=== PATIENT | female | born 1975 | race Caucasian/White ===

== ENCOUNTER 2017-09-24 17:46 | Emergency (ER) | payer MEDICAID ==
[~2017-09-24] VITALS: Ht 165.1 cm; Wt 56.7 kg
[2017-09-24 17:52] VITALS: BP_SYST 117
[2017-09-24 19:17] LABS: BASOPHILS % (AUTO) 0.7 % (0.0-2.0); EOSINOPHILS # (AUTO) 0.1 K/uL (0.0-0.4); HEMATOCRIT 32.3 % (36-48); HEMOGLOBIN 10.5 g/dL (12.0-16.0); LYMPHOCYTES # (AUTO) 0.8 K/uL (1.0-5.5); LYMPHOCYTES % (AUTO) 19.6 % (20.5-51.5); MEAN CORPUSCULAR HEMOGLOBIN 27 pg (27-31); MEAN CORPUSCULAR HGB CONC 32 % (32-36); MEAN CORPUSCULAR VOLUME 84 fL (79.0-98.0); MONOCYTES # (AUTO) 0.2 K/uL (0.0-1.0); MONOCYTES % (AUTO) 6.2 % (1.7-9.3); NEUTROPHILS # (AUTO) 2.8 K/uL (1.8-7.7); NEUTROPHILS % (AUTO) 71.5 % (40.0-70.0); PLATELET COUNT (AUTO) 182 K/uL (130-430); RED BLOOD CELL COUNT(AUTO) 3.85 MIL/uL (4.2-6.2); RED CELL DISTRIBUTION WIDTH 13.2 % (9.0-15.0); WHITE BLOOD COUNT (AUTO) 3.9 K/uL (4.8-10.8)
[2017-09-24 19:35] LABS: INR 0.9 (0.8-1.2); PROTHROMBIN TIME 9.4 SECS (9.5-12.5)
[2017-09-24 19:42] LABS: ANION GAP 6 (5-15); CALCIUM 9.1 mg/dL (8.4-11.0); CHLORIDE 107 mmol/L (98-107); GLUCOSE 94 mg/dL (70-99); POTASSIUM 4.1 mmol/L (3.5-5.1); SODIUM SERUM 140 mmol/L (136-145); UREA NITROGEN, BLOOD 15 mg/dL (8-21)
[2017-09-24 19:47] LABS: GFR AFRICAN AMERICAN 142 mL/min (>90)
[2017-09-24 19:55] LABS: ALANINE AMINOTRANSFERASE 36 U/L (12-78); ALBUMIN 3.2 g/dL (3.4-4.8); ASPARTATE AMINOTRANSFERASE 22 U/L (10-37); FREE T4 (FREE THYROXINE) 0.6 ng/dL (0.6-1.6); TOTAL BILIRUBIN 0.2 mg/dL (0.0-1.0)
[2017-09-24 19:57] LABS: ALCOHOL, BLOOD < 3 mg/dL (<10)
== END 2017-09-24 20:10 | disposition home or self-care (01) ==
LOC: SED 17:46
DX: I87.2 Venous insufficiency (chronic) (peripheral) (principal); I73.9 Peripheral vascular disease, unspecified; H10.9 Unspecified conjunctivitis; F17.200 Nicotine dependence, unspecified, uncomplicated; Z71.6 Tobacco abuse counseling
CPT/HCPCS: 36415; 80053; 82140; 83605; 83880; 84439; 84484; 85025; 85610; 87040; 93005; 93971; 99285; G0482

== ENCOUNTER 2018-02-19 17:12 | Emergency (ER) | payer MEDICAID ==
[~2018-02-19] VITALS: Ht 167.6 cm; Wt 58.1 kg
[2018-02-19 17:16] VITALS: BP_SYST 162
[2018-02-19 18:10] VITALS: BP_SYST 162
== END 2018-02-19 18:10 | disposition home or self-care (01) ==
LOC: SED 17:12
DX: S90.01XA Contusion of right ankle, initial encounter (principal); M19.90 Unspecified osteoarthritis, unspecified site; Z85.41 Personal history of malignant neoplasm of cervix uteri; X58.XXXA Exposure to other specified factors, initial encounter; Y93.89 Activity, other specified; Y92.89 Other specified places as the place of occurrence of the external cause; Y99.8 Other external cause status
CPT/HCPCS: 99284

== ENCOUNTER 2019-10-18 18:59 | Emergency (ER) | payer MEDICAID ==
[~2019-10-18] VITALS: Ht 165.1 cm; Wt 59.0 kg
[2019-10-18 19:05] VITALS: BP_SYST 128
[2019-10-18 19:59] LABS: BASOPHILS % (AUTO) 0.5 % (0.0-2.0); EOSINOPHILS % (AUTO) 0.3 % (0.0-4.0); HEMATOCRIT 46.7 % (36-48); HEMOGLOBIN 15.8 g/dL (12.0-16.0); LYMPHOCYTES # (AUTO) 0.6 K/uL (1.0-5.5); LYMPHOCYTES % (AUTO) 9.1 % (20.5-51.5); MEAN CORPUSCULAR HEMOGLOBIN 30 pg (27-31); MEAN CORPUSCULAR HGB CONC 34 % (32-36); MEAN CORPUSCULAR VOLUME 87 fL (79.0-98.0); MONOCYTES # (AUTO) 0.2 K/uL (0.0-1.0); MONOCYTES % (AUTO) 3.6 % (1.7-9.3); NEUTROPHILS # (AUTO) 5.8 K/uL (1.8-7.7); NEUTROPHILS % (AUTO) 86.5 % (40.0-70.0); PLATELET COUNT (AUTO) 200 K/uL (130-430); RED BLOOD CELL COUNT(AUTO) 5.36 MIL/uL (4.2-6.2); RED CELL DISTRIBUTION WIDTH 15.5 % (9.0-15.0); WHITE BLOOD COUNT (AUTO) 6.8 K/uL (4.8-10.8)
[2019-10-18 20:07] LABS: CALCIUM 10.4 mg/dL (8.4-11.0); CREATININE 0.75 mg/dL (0.55-1.30); POTASSIUM 3.4 mmol/L (3.5-5.1)
[2019-10-18 20:12] LABS: ALBUMIN 4.8 g/dL (3.4-4.8); TOTAL BILIRUBIN 0.4 mg/dL (0.0-1.0)
[2019-10-18] MEDS ORDERED: FAMOTIDINE PF 20 MG/2 ML VIAL IVP ONE (20:15)
[2019-10-18] MEDS ORDERED: MORPHINE 4 MG/ML INJ. SYRINGE IVP ONE (20:15)
[2019-10-18] MEDS ORDERED: ONDANSETRON HCL 4 MG/2 ML VIAL IVP ONE (20:15)
[2019-10-18] MEDS ORDERED: NACL 0.9% 1,000 ML IV ONE (20:15)
[2019-10-18] MEDS ORDERED: POTASSIUM CHLORIDE 20 MEQ TAB.PRT.SR PO ONE (21:00)
[2019-10-18 21:47] LABS: BILIRUBIN,URINE NEGATIVE (NEGATIVE); BLOOD, URINE NEGATIVE (NEGATIVE); COLOR,URINE YELLOW (YELLOW); GLUCOSE,URINE NEGATIVE (NEGATIVE); KETONES,URINE NEGATIVE (NEGATIVE); NITRITE, URINE NEGATIVE (NEGATIVE); PH,URINE 7.5 (5.0-8.0); PROTEIN URINE NEGATIVE (NEGATIVE); UROBILINOGEN,URINE 0.2 (0.2-1.0)
[2019-10-18 21:55] LABS: CLARITY/URINE HAZY (CLEAR); LEUKOCYTE ESTERASE ,URINE TRACE (NEGATIVE)
[2019-10-18 21:58] LABS: BACTERIA,URINE FEW /HPF (None Seen); MUCUS,URINE None Seen /LPF (None Seen); RBC,URINE NONE SEEN /HPF (0-3); URINE AMORPHOUS PHOSPHATES 1+ /HPF (None Seen)
[2019-10-18 22:49] VITALS: BP_SYST 125
[2019-10-19] MEDS ORDERED: ALPR1TAB2 PO (05:27)
[2019-10-19] MEDS ORDERED: FURO-150 PO (05:27)
[2019-10-19] MEDS ORDERED: RANI-362 PO (05:27)
[2019-10-19] MEDS ORDERED: NEU300 PO (05:27)
[2019-10-19] MEDS ORDERED: TIZA4TAB11 PO (05:27)
[2019-10-19] MEDS ORDERED: POTA8TAB4 PO (05:27)
[2019-10-19] MEDS ORDERED: BACL10TA PO (05:27)
[2019-10-19] MEDS ORDERED: HYD10 PO (05:27)
[2019-10-19] MEDS ORDERED: IMI50 PO (05:27)
[2019-10-19] MEDS ORDERED: FERROUS SULFATE PO (05:27)
[2019-10-19] MEDS ORDERED: MONT10TA25 PO (05:27)
[2019-10-19] MEDS ORDERED: OMEP40CA33 PO (05:27)
== END 2019-10-18 22:49 | disposition home or self-care (01) ==
LOC: SED 18:59
DX: R10.84 Generalized abdominal pain (principal); R11.10 Vomiting, unspecified
CPT/HCPCS: 36415; 74021; 76700; 80053; 81000; 83690; 84703; 85025; 96361; 96374; 96375; 99284; J2270; J2405; J3490; J7030

== ENCOUNTER 2019-10-19 03:17 | Inpatient (IN) | payer MEDICAID ==
[~2019-10-19] VITALS: Ht 165.1 cm; Wt 60.8 kg
[2019-10-19 03:20] VITALS: BP_SYST 103
[2019-10-19] MEDS ORDERED: MORPHINE 4 MG/ML INJ. SYRINGE IVP ONE (03:30)
[2019-10-19] MEDS ORDERED: ONDANSETRON HCL 4 MG/2 ML VIAL IVP ONE (03:30)
[2019-10-19] MEDS ORDERED: NACL 0.9% 1,000 ML IV ONE (04:00)
[2019-10-19] MEDS ORDERED: POTA8TAB4 PO (05:27)
[2019-10-19] MEDS ORDERED: MONT10TA25 PO (05:27)
[2019-10-19] MEDS ORDERED: OMEP40CA33 PO (05:27)
[2019-10-19] MEDS ORDERED: NEU300 PO (05:27)
[2019-10-19] MEDS ORDERED: ALPR1TAB2 PO (05:27)
[2019-10-19] MEDS ORDERED: FURO-150 PO (05:27)
[2019-10-19] MEDS ORDERED: HYD10 PO (05:27)
[2019-10-19] MEDS ORDERED: IMI50 PO (05:27)
[2019-10-19] MEDS ORDERED: TIZA4TAB11 PO (05:27)
[2019-10-19] MEDS ORDERED: FERROUS SULFATE PO (05:27)
[2019-10-19] MEDS ORDERED: RANI-362 PO (05:27)
[2019-10-19] MEDS ORDERED: BACL10TA PO (05:27)
[2019-10-19] MEDS: ACETAMINOPHEN 325 MG TABLET PO PRN ×2 (09:42→21:33)
[2019-10-19] MEDS ORDERED: ONDANSETRON HCL 4 MG/2 ML VIAL IVP PRN (10:00)
[2019-10-19] MEDS ORDERED: METOCLOPRAMIDE HCL 10 MG/2 ML VIAL IVP PRN (10:00)
[2019-10-19] MEDS ORDERED: MORPHINE 2 MG/ML INJ. SYRINGE IVP PRN (10:00)
[2019-10-19 10:42] VITALS: BP_SYST 122
[2019-10-19] MEDS: D5NS 1,000 ML IV SCH (10:53)
[2019-10-19] MEDS: MORPHINE 4 MG/ML INJ. SYRINGE IVP PRN ×2 (13:34→17:49)
[2019-10-19] MEDS ORDERED: HYDROCORTISONE 10 MG TABLET (CORTEF) PO ONE (15:15)
[2019-10-19 16:26] VITALS: BP_SYST 91
[2019-10-19 20:00] VITALS: BP_SYST 89
[2019-10-19 22:00] VITALS: BP_SYST 85
[2019-10-20] VITALS: BP_SYST 108
[2019-10-20 01:50] VITALS: BP_SYST 93
[2019-10-20] MEDS: D5NS 1,000 ML IV SCH (02:52)
[2019-10-20] MEDS ORDERED: HYDROcodone/ACETAMIN 5-325 MG TAB (NORCO/ VICODIN) PO PRN (03:30)
[2019-10-20 08:40] VITALS: BP_SYST 103
== END 2019-10-20 09:30 | disposition left against medical advice (07) | DRG 251 ==
LOC: SED 03:17 → SMU 07:51
PROVIDERS: ADMIT Internal Medicine Hospice and Palliative Medicine; ATTEND Internal Medicine Hospice and Palliative Medicine
DX: R10.9 Unspecified abdominal pain (principal); C85.90 Non-Hodgkin lymphoma, unspecified, unspecified site; I10 Essential (primary) hypertension; M19.90 Unspecified osteoarthritis, unspecified site; Z53.29 Procedure and treatment not carried out because of patient's decision for other reasons; Z85.43 Personal history of malignant neoplasm of ovary; Z79.899 Other long term (current) drug therapy
CPT/HCPCS: 96361; 96374; 96375; 99285; J2270; J2405; J7030; J7042